=== PATIENT | female | born 1940 | race Caucasian/White ===

== ENCOUNTER → 2017-10-26 15:49 | Outpatient (CLI) | payer MEDICARE, OTHER, SELFPAY ==
--- NOTE | 2017-10-26 15:53 | DI.RAD.S_ITS ---
PROCEDURE: XR ELBOW RT MIN 3V INDICATIONS: Right elbow pain TECHNIQUE: 3 views of the elbow were acquired. COMPARISON: None. FINDINGS: Bones: Mild bony irregularity can be seen involving the radial head, with a mildly impacted fracture. Age-appropriate osteopenia and bony degenerative changes are seen. Soft tissues: A joint effusion is present, as manifested by an elevated anterior fat-pad and a visible posterior fat-pad. IMPRESSION: Mildly displaced, slightly impacted radial head fracture, with an associated elbow joint effusion. Dictated by: Moise Ly M.D. on 10/26/2017 at 15:28 Approved by: Moise Ly M.D. on 10/26/2017 at 15:30
== END ==
PROVIDERS: Visit Provider Physician Assistant
DX: S52.121A Displaced fracture of head of right radius, initial encounter for closed fracture (principal); M25.521 Pain in right elbow
CPT/HCPCS: 73080